=== PATIENT | female | born 1965 ===

== ENCOUNTER 2023-04-11 12:53 | Emergency (ER) | payer OTHER ==
[~2023-04-11] VITALS: Ht 170.2 cm; Wt 81.6 kg
[~2023-04-11 12:53] MED LIST: ATACAND16 MG PO; CLARITIN10 M1 PO; D3 + K2 DOTS 11 EACH PO; FOLIC ACID0.8 M1 PO; FOSAMAX70 MG PO; SYNTHROID75 MCG PO; TREXALL5 MG PO; ZORVOLEX18 MG PO
== END 2023-04-11 18:07 | disposition home or self-care (01) ==
LOC: ER 12:53
DX: M25.562 Pain in left knee (principal); Z88.2 Allergy status to sulfonamides
CPT/HCPCS: 96372; 99284; J1100; J1885

== ENCOUNTER 2023-05-02 08:25 | Outpatient (CLI) | payer OTHER | END 2023-05-02 08:36 | disposition home or self-care (01) | LOC: RAD 08:25 | PROVIDERS: ATTEND Internal Medicine Rheumatology | DX: M17.11 Unilateral primary osteoarthritis, right knee (principal); M17.12 Unilateral primary osteoarthritis, left knee ==